=== PATIENT | female | born 1960 ===

== ENCOUNTER 2018-05-08 12:50 | Outpatient (CLI) | payer OTHER ==
[~2018-05-08] VITALS: Ht 157.5 cm; Wt 67.1 kg
== END 2018-05-08 13:05 | disposition home or self-care (01) ==
LOC: OFIC 805 12:50
DX: R04.0 Epistaxis (principal); J45.998 Other asthma; R09.81 Nasal congestion

== ENCOUNTER 2018-06-12 11:56 | Outpatient (CLI) | payer OTHER ==
[~2018-06-12] VITALS: Ht 152.4 cm; Wt 67.1 kg
== END 2018-06-12 12:15 | disposition home or self-care (01) ==
LOC: OFIC 805 11:56
DX: R09.81 Nasal congestion (principal); R04.0 Epistaxis; J45.998 Other asthma